=== PATIENT | male | born 1940 | race Caucasian/White ===

== ENCOUNTER 2020-06-13 08:53 | Day surgery (SDC) | payer MEDICARE, SELFPAY ==
[2020-06-07 10:20] VITALS: BMI 23.0
[2020-06-13 11:45] VITALS: BP 139/75; PULSE 108; RESP 20; TEMP 37.1; O2SAT 100
[2020-06-13 11:55] LABS: Glucose, Whole Blood 157 mg/dL (60-115)
[2020-06-13] MEDS: Tetracaine HCl/PF 0.5% Oph Sol 4 ML DROPS 1 DROP EYE-LEFT (11:55)
[2020-06-13] MEDS: Cyclopentolate 1 % Ophth Sol 2 ML DRPBTL 1 DROP EYE-LEFT ×3 (11:56→12:11)
[2020-06-13] MEDS: Tropicamide 1 % Ophth Sol 3 ML BTL 1 DROP EYE-LEFT ×3 (11:57→12:06)
--- NOTE | 2020-06-13 12:07 | P.CONAN_ITS ---
[facility] Past Medical History Medical History (Updated 06/07/20 @ 10:08 by Nohemi Arana) Anemia Diabetes Glaucoma Surgical History Surgical History (Updated 06/07/20 @ 10:08 by Nohemi Arana) Hx of colonoscopy Social History Social History Smoking Status: Never smoker Use of substances other than those prescribed or required for medical reasons: No Advance Directives: No Advance Directives Information Provided: Yes Meds Allergies Allergy/AdvReac Type Severity Reaction Status Date / Time [facility]lut[facility] [[facility] AdvReac Gastrointestinal Verified 06/07/20 10:12 Upset Home Medications Medication Instructions Recorded Confirmed Type albuterol sulfate [Ventolin HFA] 1 puff INHALATION QID PRN 06/07/20 06/07/20 History insulin detemir U-100 [Levemir 35 unit SUBCUT BID 06/07/20 06/07/20 History FlexTouch U-100 Insuln] lisinopril 2.5 mg PO DAILY 06/07/20 06/07/20 History metformin 1,000 mg PO BID 06/07/20 06/07/20 History sitagliptin [Januvia] 50 mg PO DAILY 06/07/20 06/07/20 History Exam Exam Date and Time: June 13, 2020 1207 Height,Weight and Vital Signs: Height 5 ft 4.17 in Weight 61.1 kg Last Vital Signs Temp 98.8 F 06/13/20 11:45 Pulse 108 H 06/13/20 11:45 Resp 20 06/13/20 11:45 BP 139/75 06/13/20 11:45 Pulse Ox 100 06/13/20 11:45 Pertinent Lab Results Pertinent Lab Results: Laboratory Tests 06/13/20 11:51 POC Glucose 157 H Airway Mallampati Class: III TM Dist: >3cm Neck ROM: Full Denture: Upper and Lower Heart: RRR Lungs: CTA BL Assessment and Plan Assessment Anesthesia Assessment: Anesthesia Plan Discussed and Chart Reviewed Final Anesthetic Review NPO: Yes ASA Class: III Final Preanesthetic Review: Meds/Allgs Chart Reviewed and Consent Obtained/Reviewed Patient Risk: Intermediate Procedure Risk: Low Anesthetic Plan Anesthetic Plan: MAC: Disposition: Standard PACU
--- NOTE | 2020-06-13 15:07 | P.PCN_ITS ---
Ophthalmology Procedure Procedure Ophthalmology Viscoelastic: Healmoshe Buttt Dual Pack Pro Ophthalmology Lenses: TECNIS [id number] (19) Procedure Notes: PREOPERATIVE DIAGNOSIS: Decreased visual acuity left eye secondary to cataract and glaucoma POSTOPERATIVE DIAGNOSIS: Same PROCEDURE: Left cataract extraction with intraocular lens insertion and trabeculectomy, left eye SURGEON: Meng Martínez M.D. ANESTHESIA: Topical/MAC ESTIMATED BLOOD LOSS: None COMPLICATIONS: None After obtaining informed consent, the patient was brought to the operating room suite and placed in the supine position. After adequate sedation per anesthesia, topical drops of Tetracaine were given to the left eye. The eye was then prepped and draped in the usual sterile fashion. The operating room microscope was then positioned over the left eye and a lid speculum placed. 2% Lidocaine was instilled subconjunctivally. After awaiting 30 seconds, a paracentesis was created superiorly. Hemostasis was then achieved using wet field cautery. Mitomycin .4mg/ml was then placed in the conjunctival pocket and held in place for two minutes. The subconjunctival pocket was then irrigated copiously with 20 mls of BSS. Paracentesis was then created. Viscoelastic was then instilled into the anterior chamber. A crescent blade was then utilized to create a partial thickness sclera wound followed by advancement to clear cornea with the crescent blade. A keratome was then utilized to enter the anterior chamber. Capsulotomy forceps were then utilized to create a continuous circular tear capsulotomy. Hydrodissection and hydrodelineation were carried out until adequate mobilization of the nucleus occurred. Phacoemulsification was utilized to remove the dense central nucleus followed by removal of remnant cortical material utilizing the automated aspiration irrigation unit. Viscoelastic was then instilled into the posterior capsular bag followed by placement of a posterior chamber intraocular lens. Attention was then directed to create a trabeculectomy. A Katty punch was then utilized to create the trabeculectomy. The residual Viscoelastic was then removed utilizing the automated IA machine. The egress of aqueous was evaluated and found to be appropriate. The conjunctiva was then closed with a 9-0 vicryl suture. BSS wa s then instilled into the anterior chamber creating a superior bleb, without obvious leakage. Intracameral injection of Vigamox 0.3%, 0.1 ml and subtenon injection of Kenalog-40 0.2 ml was given followed by an atropine drop. The patient tolerated the procedure well and will be followed up in the a.m.
[2020-06-13 15:10] VITALS: BP 123/73; PULSE 92; RESP 15; TEMP 36.3; O2SAT 100
--- NOTE | 2020-06-13 16:23 | W.PM.OPN ---
Operative Note Operative Note Narrative: The patient had an ophthalmology?procedure on 06/13/20.? The procedure template fed into the wrong report. Please see ECT progress note 06/13/20 note under neurology section entitled for full ophthalmology procedure note.? The information contained within that report is otherwise complete and accurate.? ?The patient did not have ECT on this date.?
== END 2020-06-13 16:03 | disposition home or self-care (01) ==
PROVIDERS: Visit Provider Ophthalmology
PROC: (CPT 66170; principal; 2020-06-13 13:30)
DX: H40.9 Unspecified glaucoma (principal); H40.812 Glaucoma with increased episcleral venous pressure, left eye; H25.12 Age-related nuclear cataract, left eye; E11.9 Type 2 diabetes mellitus without complications; Z79.899 Other long term (current) drug therapy; Z79.84 Long term (current) use of oral hypoglycemic drugs
CPT/HCPCS: 66170; 66984; 82947; J2250; J3010; J3300; J7315; Q4081; V2632

== ENCOUNTER 2021-01-06 15:26 | Emergency (ER) | payer MEDICARE, SELFPAY ==
--- NOTE | 2021-01-06 17:36 | ED.RECABL ---
HPI - Recheck/Abnormal Lab/Rx General Chief Complaint: Recheck/Abnormal Lab/Rx Stated Complaint: Abnormal labs Time Seen by Provider: 01/06/21 17:35 Source: patient Mode of arrival: ambulatory Limitations: no limitations History of Present Illness HPI narrative: Found to have a Hb of 7 today, denies chest pain but he is having fatigue, denies black stool, nose bleed etc. Denies shortness of breath. Related Data Home Medications Medication Instructions Recorded Confirmed albuterol sulfate [Ventolin HFA] 1 puff INHALATION QID PRN 06/07/20 06/07/20 insulin detemir U-100 [Levemir 35 unit SUBCUT BID 06/07/20 06/07/20 FlexTouch U-100 Insuln] lisinopril 2.5 mg PO DAILY 06/07/20 06/07/20 metformin 1,000 mg PO BID 06/07/20 06/07/20 sitagliptin [Januvia] 50 mg PO DAILY 06/07/20 06/07/20 Previous Rx's Medication Instructions Recorded ferrous sulfate 325 mg PO DAILY #30 tab 01/06/21 folic acid 1 mg PO DAILY #30 tab 01/06/21 Allergies Allergy/AdvReac Type Severity Reaction Status Date / Time dulaglutide [From [facility]] AdvReac Gastrointestinal Verified 06/07/20 10:12 Upset Review of Systems Constitutional: Constitutional: Reports no additional constitutional complaints Eyes: Eyes: Reports no additional eye complaints ENT: Denies dizziness Cardiovascular: Cardiovascular: Reports no additional cardiovascular complaints Respiratory: Respiratory: Reports as per HPI Gastrointestinal: Gastrointestinal: Reports no additional gastrointestinal complaints Musculoskeletal: Musculoskeletal: Reports no additional musculoskeletal complaints Integumentary/Breasts: Skin/Breast: Denies rash Neurologic: Reports system reviewed and no additional complaints, except as documented, Denies dizziness and Denies Sensory deficit (Neuro) Psychiatric: Psychiatric: Denies anxiety PMFSH Past Medical History Medical History Anemia Diabetes Glaucoma Surgical History Hx of colonoscopy Social History Social History Smoking Status: Never smoker Use of substances other than those prescribed or required for medical reasons: No Advance Directives: No Advance Directives Information Provided: Yes Physical Exam Vital Signs: Vital Signs: Last Vital Signs Temp 98.5 F 01/06/21 17:38 Pulse 90 01/06/21 17:38 Resp 16 01/06/21 17:38 BP 148/64 H 01/06/21 17:38 Pulse Ox 100 01/06/21 17:38 Body Mass Index 21.6 Const: General: healthy appearing Nutritional Appearance: average body habitus Orientation/consciousness: oriented to person and patient oriented x3 Limitations: no limitations HENMT: Head: Yes normal to inspection Ears: external ears normal General nose exam: Normal external nose present Mouth: Normal oral and palatal mucosa present and oropharynx normal Throat: Yes posterior oropharynx normal Eyes: General: appearance normal, both eyes and all related structures Neck: Other: supple Neck: Yes normal visual inspection Chest: Chest palpation & inspection: normal inspection of the chest Resp: Auscultation: clear to auscultation bilaterally Cardio: Jugular venous distension: no JVD Rate: regular rate Rhythm: regular rhythm Heart sounds: S1 normal heart sound present and S2 normal heart sound present GI: Inspection: Yes normal to inspection Palpation (GI): Soft to palpation, nontender and No hepatosplenomegaly present Auscultation: normal bowel sounds : Other: rectal brown stool heme negative General: Yes no CVA tenderness Back/Spine/Pelvis: Back: no CVA tenderness Skin: General skin exam: no rashes or lesions noted Neuro: General: oriented to person and patient oriented x3 Cranial nerves: Yes CN's II-XII intact bilaterally Motor exam (neuro): 5/5 motor strength present throughout Sensory Exam: No Sensory deficit (Neuro) Extrem: General: Yes normal to inspection Psych: Appearance: grossly normal Course Course Course Narrative: no evidence of active bleeding, rectal heme negative, Hct 28.5 will not transfuse at this time, EKG and troponin negative. Will not admit. Awaiting to speak to Dr. Rios Reevaluation(s) Reevaluation #1: Discussed with coverage with Dr. Lawson will place on iron and folic acid Time: 19:25 MDM - Recheck/Abnormal Lab/Rx Lab Data Result diagrams: 01/06/21 18:07 01/06/21 18:07 Labs: Lab Results 01/06/21 01/06/21 01/06/21 Range/Units 18:07 18:07 18:07 WBC 5.2 (4.8-10.8) X10*3/uL RBC 4.91 (4.60-5.80) X10*6/uL Hgb 7.4 L (14.0-18.0) g/dl Hct 28.5 L (42-52) % MCV 58.0 L (80-98) fL MCH 15.1 L (27.0-33.0) pg MCHC 26.0 L (31.0-36.0) g/dl RDW 20.7 H (11.0-16.0) % Plt Count 220 (160-400) X10*3/uL MPV Not Reportable Immature Gran % (Auto) 0.2 (0.0-0.4) % Neut % (Auto) 51.6 (45-73) % Lymph % (Auto) 35.3 (20-40) % Davis % (Auto) 11.5 H (2-11) % Eos % (Auto) 1.0 (0-4) % Baso % (Auto) 0.4 (0-2) % Lymph # (Auto) 1.8 (1.2-4.9) X10*3/uL Davis # (Auto) 0.6 (0.1-1.2) X10*3/uL Eos # (Auto) 0.1 (0.0-0.4) X10*3/uL Baso # (Auto) 0.0 (0.0-0.2) X10*3/uL Abs Immat Gran (auto) 0.01 (0.00-0.03) X10*3/uL Absolute Neuts (auto) 2.7 (2.0-8.3) X10*3/uL Absolute Nucleated RBC 0.000 (0.0-0.012) X10*3/uL Nucleated RBC % (auto) 0.0 (0.0-0.2) /100WBC Smear Tech's Comments VERIFIED Sodium 136 (135-145) mmol/L Potassium 4.5 (3.3-5.1) mmol/L Chloride 102 (96-108) mmol/L Carbon Dioxide 24 (22-29) mmol/L Anion Gap 15 (12-20) BUN 26 H (9-16) mg/dL Creatinine 1.03 (0.5-1.4) mg/dL Estim Creat Clear Calc 50.8 Estimated GFR > 60 Random Glucose 213 H (60-115) mg/dL Calcium 9.6 (8.4-10.2) mg/dL Troponin I High Sens 5.1 (<3.5-35.0) ng/L ECG Data Attestation: I personally reviewed and interpreted this ECG as follows: Interpretation: normal sinus rate of 90, no st or twave changes Discharge Plan Discharge Clinical Impression: Anemia Qualifiers: Anemia type: unspecified type Qualified Code(s): D64.9 - Anemia, unspecified Patient Disposition: Home, Self-Care Prescriptions: New folic acid 1 mg tablet 1 mg PO DAILY Qty: 30 RF: 0 ferrous sulfate 325 mg (65 mg iron) tablet 325 mg PO DAILY Qty: 30 RF: 0 No Action metformin 500 mg Tablet 1,000 mg PO BID RF: 0 albuterol sulfate [Ventolin HFA] 90 mcg/actuation Hfa Aerosol Inhaler 1 puff INHALATION QID PRN (Reason: Wheezing) RF: 0 lisinopril 2.5 mg Tablet 2.5 mg PO DAILY RF: 0 Levemir FlexTouch U-100 Insuln 100 unit/mL (3 mL) Insulin Pen 35 unit SUBCUT BID RF: 0 Januvia 50 mg Tablet 50 mg PO DAILY RF: 0 Referrals: Latrice Keith MD [Primary Care Provider] - 2 days
[2021-01-06 17:38] VITALS: BP 148/64; PULSE 90; RESP 16; TEMP 36.9; O2SAT 100; BMI 21.6
--- NOTE | 2021-01-06 17:46 | ECG_ITS ---
Test Reason : ABNORMAL LABS Blood Pressure : / mmHG Vent. Rate : 092 BPM Atrial Rate : 092 BPM P-R Int : 126 ms QRS Dur : 082 ms QT Int : 358 ms P-R-T Axes : 071 045 035 degrees QTc Int : 442 ms Normal sinus rhythm Nonspecific ST and T wave abnormality Abnormal ECG No previous ECGs available Referred By: Alberto Bautista Electronically Signed By:Gumaro Beal
[2021-01-06 18:13] LABS: Hemoglobin 7.4 g/dl (14.0-18.0); MANUAL DIFF FLAG SCAN; SCAN SMEAR FLAG 1
[2021-01-06 18:15] LABS: Basophils Percent Auto 0.4 % (0-2); Eosinophils Absolute Auto 0.1 X10*3/uL (0.0-0.4); Hematocrit 28.5 % (42-52); Imm Gran Abs Auto 0.01 X10*3/uL (0.00-0.03); Imm Gran Pct Auto 0.2 % (0.0-0.4); Lymphocytes Absolute Auto 1.8 X10*3/uL (1.2-4.9); Lymphocytes Percent Auto 35.3 % (20-40); Mean Corpuscular Hemoglobin 15.1 pg (27.0-33.0); Monocytes Absolute Auto 0.6 X10*3/uL (0.1-1.2); Monocytes Percent Auto 11.5 % (2-11); Neutrophils Absolute Auto 2.7 X10*3/uL (2.0-8.3); Neutrophils Percent Auto 51.6 % (45-73); Platelet Count 220 X10*3/uL (160-400); Red Blood Count 4.91 X10*6/uL (4.60-5.80); Red Cell Distribution Width 20.7 % (11.0-16.0); White Blood Count 5.2 X10*3/uL (4.8-10.8)
[2021-01-06 18:16] LABS: PLT ABN DIST 1
[2021-01-06 18:37] LABS: SLIDE REVIEW VERIFIED
[2021-01-06 18:43] LABS: Anion Gap 15 (12-20); Blood Urea Nitrogen 26 mg/dL (9-16); Calcium 9.6 mg/dL (8.4-10.2); Carbon Dioxide 24 mmol/L (22-29); Chloride 102 mmol/L (96-108); Creatinine Clr Calc Pharmacy 50.8; Estimated Glomerular Filt Rate > 60; Glucose Random 213 mg/dL (60-115); Potassium 4.5 mmol/L (3.3-5.1); Sodium 136 mmol/L (135-145)
[2021-01-06 18:50] LABS: Troponin-I High Sensitivity 5.1 ng/L (<3.5-35.0)
--- NOTE | 2021-01-06 19:32 | PC.NURSE ---
Type and Screen order to be discontinued/cancelled by . States he won't need a blood transfusion after all, so just cancel the order. We are going to be discharging him home .
== END 2021-01-06 19:44 | disposition home or self-care (01) ==
PROVIDERS: Emergency Provider Emergency Medicine; PCP Internal Medicine
DX: D64.9 Anemia, unspecified (principal); R79.89 Other specified abnormal findings of blood chemistry; E11.9 Type 2 diabetes mellitus without complications; Z79.899 Other long term (current) drug therapy; Z79.4 Long term (current) use of insulin
CPT/HCPCS: 36415; 80048; 84484; 85025; 93005; 99284

== ENCOUNTER 2021-08-22 10:02 | Outpatient (REF) | payer MEDICARE, SELFPAY ==
[2021-08-22 11:29] LABS: COVID-19 Test Negative (Negative)
== END 2021-08-22 10:03 | disposition home or self-care (01) ==
LOC: HO.LAB 10:02
PROVIDERS: Visit Provider Internal Medicine
DX: Z20.822 Contact with and (suspected) exposure to COVID-19 (principal)
CPT/HCPCS: 36415; 87635; C9803

== ENCOUNTER 2021-11-20 09:25 | Day surgery (SDC) | payer MEDICARE, OTHER, SELFPAY ==
[2021-11-15 09:16] VITALS: BMI 24.0
--- NOTE | 2021-11-17 08:54 | MHC.SHP ---
Pre-Procedural Eval Section A Date of Service: 11/17/21 The patient is an INPATIENT: No Changes since office visit: No Cold of Flu in the past 2 weeks, No New Medical Problems, No Changes in Medication and No Patient answered all questions The History & Physical has been completed within 30 days and I have reviewed it.: Yes Section B Chief Complaint: Blep Allergies: Allergies Allergy/AdvReac Type Severity Reaction Status Date / Time dulaglutide [From [facility]] AdvReac Gastrointestinal Verified 06/07/20 10:12 Upset Plan Diagnosis/Plan: Unchanged I have reviewed the history and physical and performed a pertinent physical examination on my patient. No changes have occurred unless specified.
[2021-11-20 10:45] LABS: Glucose, Whole Blood 194 mg/dL (60-115)
[2021-11-20 10:47] VITALS: BP 142/81; PULSE 105; RESP 16; TEMP 37.1; O2SAT 98
--- NOTE | 2021-11-20 10:52 | P.CONAN_ITS ---
[facility] Past Medical History Medical History Anemia Diabetes Glaucoma Surgical History Surgical History Hx of cataract extraction Hx of colonoscopy History of Problems with Anesthesia: No Social History Social History Patient Tobacco Use Status: Never used Tobacco Use of substances other than those prescribed or required for medical reasons: No Have you been hit, kicked, punched, or otherwise hurt by someone within the past year? If so, by whom?: No Are you DNR?: No Advance Directives: No Advance Directives Information Provided: Yes Advance Directives on File: No Recently lost weight without trying: No Eating poorly because of decreased appetite: No Nutrition Risks: Surgical patient >75years Meds Allergies Allergy/AdvReac Type Severity Reaction Status Date / Time [facility] AdvReac Gastrointestinal Verified 11/20/21 10:38 Upset Active Medications: Current Medications Povidone Iodine (Povidone Iodine 5 % Ophth Soln 30 Ml Bottle) 1 appl EYE-LEFT PREOP PRN PRN Reason: Pre-Op Surgical Implant Prophy Home Medications Medication Instructions Recorded Confirmed Last Taken Type albuterol sulfate 90 mcg/actuation 1 puff INHALATION QID PRN 06/07/20 11/15/21 Unknown History aerosol inhaler (Ventolin HFA) insulin detemir U-100 100 unit/mL 35 unit SUBCUT BID 06/07/20 06/07/20 Unknown History (3 mL) subcutaneous pen (Levemir FlexTouch U-100 Insulin) lisinopril 2.5 mg tablet 2.5 mg PO DAILY 06/07/20 11/15/21 11/20/21 08:00 Histo ry metformin 500 mg tablet 1,000 mg PO BID 06/07/20 11/15/21 Unknown History brimonidine 0.2 % eye drops 1 drp OPHTHALMIC (EYE) BID 11/15/21 11/15/21 11/20/21 08:00 History insulin detemir U-100 100 unit/mL 45 unit SUBCUT BID 11/15/21 11/15/21 Unknown History subcutaneous solution (Levemir U-100 Insulin) sitagliptin 100 mg tablet (Januvia) 1 tab PO DAILY 11/15/21 11/15/21 Unknown History timolol maleate 0.5 % eye drops 1 drp OPHTHALMIC (EYE) QAM 11/15/21 11/15/21 11/20/21 08:00 History Exam Exam Date and Time: November 20, 2021 1052 Height,Weight and Vital Signs: Height 5 ft 4 in Weight 63.503 kg Last Vital Signs Temp 98.8 F 11/20/21 10:47 Pulse 105 H 11/20/21 10:47 Resp 16 11/20/21 10:47 BP 142/81 H 11/20/21 10:47 Pulse Ox 98 11/20/21 10:47 Pertinent Lab Results Pertinent Lab Results: Laboratory Tests 11/20/21 10:41 POC Glucose 194 H Airway Mallampati Class: II TM Dist: >3cm Neck ROM: Full Denture: Upper Partial: Lower Loose/Missing/Broken Teeth: Yes, Upper and Lower Heart: RRR Lungs: CTA Assessment and Plan Assessment Anesthesia Assessment: Anesthesia Plan Discussed and Chart Reviewed Final Anesthetic Review History of Problems with Anesthesia: No NPO: Yes ASA Class: II Final Preanesthetic Review: Meds/Allgs Chart Reviewed, Consent Obtained/Reviewed and Anes Risks/Benef Reviewed Patient Risk: Low Procedure Risk: Low Anesthetic Plan Anesthetic Plan: MAC: Disposition: Standard PACU
[2021-11-20 13:01] VITALS: BP 116/70; PULSE 96; RESP 16; TEMP 36.9; O2SAT 97
--- NOTE | 2021-11-21 00:46 | OP_ITS ---
SURGEON: Meng Martínez MD PREOPERATIVE DIAGNOSIS: Persistent choroidal effusion. POSTOPERATIVE DIAGNOSIS: PROCEDURE PERFORMED: Revision OF bLEB. ESTIMATED BLOOD LOSS: COMPLICATIONS: ANESTHESIA: Local with MAC. ASSISTANTS: SPECIMENS: DESCRIPTION OF PROCEDURE: After obtaining informed consent, the patient was brought to the operating room suite, placed in supine position after being prepped and draped in usual sterile fashion. The Operative microscope was positioned over the left eye. Lidocaine was instilled subconjunctivally. The conjunctival peritomy was created superiorly utilizing sharp and blunt dissection with Cheri scissors revealing the sclerotomy site. Three sutures were utilized to tighten the sclerotomy site. 9-0 Vicryl was utilized. The conjunctiva was closed with 9-0 Vicryl suture. Paracentesis was then created followed by instillation of 0.1 Vigamox. The patient tolerated the procedure well and will see me in followup. MD CHIO Cates/MODL / [id number] MTDD
== END 2021-11-20 13:11 | disposition home or self-care (01) ==
PROVIDERS: PCP Internal Medicine; Visit Provider Ophthalmology
PROC: (CPT 66250; principal; 2021-11-20 12:40)
DX: H40.1133 Primary open-angle glaucoma, bilateral, severe stage (principal); H31.8 Other specified disorders of choroid; Z96.1 Presence of intraocular lens; D50.9 Iron deficiency anemia, unspecified; E11.21 Type 2 diabetes mellitus with diabetic nephropathy; Z79.4 Long term (current) use of insulin; Z88.0 Allergy status to penicillin
CPT/HCPCS: 66250; 82947; J2250; J3010

== ENCOUNTER 2022-03-18 08:04 | Emergency (ER) | payer MEDICARE, OTHER, SELFPAY ==
--- NOTE | ~2022-03-18 | US_ITS ---
EXAMINATION: US ABDOMEN LIMITED CLINICAL INFORMATION: Elevated LFTs. COMPARISON: None TECHNIQUE: Real-time imaging of the right upper quadrant abdominal viscera. FINDINGS: PANCREAS: Unremarkable. LIVER: The liver is normal in size. The liver contour is normal. Increased parenchymal echogenicity. No focal hepatic lesion. There is no intrahepatic biliary duct dilatation seen. GALLBLADDER: Unremarkable. The gallbladder is physiologically distended without evidence of stones, sludge, polyps, wall thickening or pericholecystic fluid. COMMON BILE DUCT: Normal in caliber measuring 0.6 cm in diameter. RIGHT KIDNEY: Ectopic right lower quadrant right kidney. Mild hydronephrosis and proximal hydroureter. No renal stone. The kidney measures 9.1 cm in maximum dimension. The bilateral ureteral jets are identified. FREE FLUID: None. US/US abdomen limited IMPRESSION: 1. Right pelvic kidney with mild hydroureteronephrosis. Bilateral ureteral jets identified. 2. Increased hepatic parenchymal echogenicity, which can be seen in the setting of steatosis. Underlying hepatocellular disease cannot be excluded. No hepatic parenchymal lesion or biliary ductal dilatation.
[2022-03-18 08:09] VITALS: BP 107/71; PULSE 122; RESP 16; O2SAT 95; BMI 21.7
--- NOTE | 2022-03-18 08:11 | ECG_ITS ---
Test Reason : DIZZINESS Blood Pressure : / mmHG Vent. Rate : 119 BPM Atrial Rate : 119 BPM P-R Int : 134 ms QRS Dur : 088 ms QT Int : 334 ms P-R-T Axes : 079 057 014 degrees QTc Int : 469 ms Sinus tachycardia Biatrial enlargement Nonspecific ST and T wave abnormality Abnormal ECG When compared with ECG of 06-JAN-2021 17:54, Nonspecific T wave abnormality, worse in Inferior leads Referred By: Generic ED Physician Electronically Signed By:Gumaro Beal
[2022-03-18 08:13] VITALS: TEMP 38.5
[2022-03-18] MEDS: Acetaminophen 325 MG TABLET 650 MG PO (08:18)
[2022-03-18 08:37] LABS: MANUAL DIFF FLAG NO
[2022-03-18 08:42] LABS: Basophils Percent Auto 0.2 % (0-2); Hematocrit 43.2 % (42.0-52.0); Hemoglobin 14.8 g/dl (14.0-18.0); Imm Gran Abs Auto 0.03 X10*3/uL (0.00-0.03); Imm Gran Pct Auto 0.4 % (0.0-0.4); Lymphocytes Absolute Auto 0.5 X10*3/uL (1.2-4.9); Lymphocytes Percent Auto 6.4 % (20-40); Mean Corpuscular HGB Conc 34.3 g/dl (31.0-36.0); Mean Corpuscular Hemoglobin 30.1 pg (27.0-33.0); Mean Platelet Volume 11.3 fL (9.4-12.4); Monocytes Absolute Auto 0.8 X10*3/uL (0.1-1.2); Monocytes Percent Auto 9.1 % (2-11); Neutrophils Absolute Auto 6.9 x10*3/uL (2.0-8.3); Neutrophils Percent Auto 83.9 % (45-73); Red Blood Count 4.91 X10*6/uL (4.60-5.80); Red Cell Distribution Width 11.8 % (11.0-16.0); White Blood Count 8.2 X10*3/uL (4.8-10.8)
[2022-03-18 08:43] LABS: Platelet Count 83 X10*3/uL (160-400)
[2022-03-18 08:54] LABS: COVID-19 Test Negative (Negative)
--- NOTE | 2022-03-18 08:54 | ED_ITS ---
HPI - General Adult General Chief complaint: Nausea/Vomiting/Diarrhea Stated complaint: headache x3 days, dizzy Time Seen by Provider: 03/18/22 08:49 Source: patient Mode of arrival: ambulatory Limitations: no limitations History of Present Illness HPI narrative: This is 81 years old diabetic presented to the ED complaining of nausea vomiting dizziness for about 3 days. Denies any neck pain he does have some headache and some abdominal pain. Onset (ago): day(s) (3) Radiation: non-radiation Severity: moderate Quality: burning Pain Consistency: constant Relieving factors: none Exacerbating factors: none Associated symptoms: denies other symptoms Related Data Home Medications Medication Instructions Recorded Confirmed albuterol sulfate 90 mcg/actuation 1 puff inhalation QID PRN Wheezing 06/07/20 11/15/21 aerosol inhaler (Ventolin HFA) insulin detemir U-100 100 unit/mL 35 unit subcut BID 06/07/20 06/07/20 (3 mL) subcutaneous pen (Levemir FlexTouch U-100 Insulin) lisinopril 2.5 mg tablet 2.5 mg PO DAILY 06/07/20 11/15/21 metformin 500 mg tablet 1,000 mg PO BID 06/07/20 11/15/21 brimonidine 0.2 % eye drops 1 drp ophthalmic (eye) BID 11/15/21 11/15/21 insulin detemir U-100 100 unit/mL 45 unit subcut BID 11/15/21 11/15/21 subcutaneous solution (Levemir U-100 Insulin) sitagliptin 100 mg tablet (Januvia) 1 tab PO DAILY 11/15/21 11/15/21 timolol maleate 0.5 % eye drops 1 drp ophthalmic (eye) QAM 11/15/21 11/15/21 Previous Rx's Medication Instructions Recorded ferrous sulfate 325 mg (65 mg 325 mg PO DAILY #30 tabs 01/06/21 iron) tablet folic acid 1 mg tablet 1 mg PO DAILY #30 tabs 01/06/21 cephalexin 500 mg capsule 500 mg PO Q8H #21 caps 03/18/22 ondansetron 4 mg disintegrating 4 mg PO Q8H 4 days #12 tabs 03/18/22 tablet Allergies Allergy/AdvReac Type Severity Reaction Status Date / Time dulaglutide [From [facility]] AdvReac Gastrointestinal Verified 11/20/21 10:38 Upset Review of Systems Constitutional: Constitutional: Reports no additional constitutional complaints Gastrointestinal: Gastrointestinal: Reports abdominal pain and Reports vomiting Neurologic: Reports system reviewed and no additional complaints, except as documented [facility] Past Medical History Attestation statement: The following information was validated with the patient. Medical History Anemia Diabetes Glaucoma Surgical History Hx of cataract extraction Hx of colonoscopy Social History Social History Alcohol intake: current Alcohol intake frequency: holidays/special occasions only Patient Tobacco Use Status: Never used Tobacco Use of substances other than those prescribed or required for medical reasons: No Advance Directives: No Advance Directives Information Provided: Yes Physical Exam ED Vital Signs: Vital Signs - 24 hr 03/18/22 08:09 03/18/22 08:13 03/18/22 10:41 Temperature 101.3 F H 98.4 F Pulse Rate 122 H 81 Respiratory Rate 16 18 Blood Pressure 107/71 114/61 Pulse Oximetry 95 97 Oxygen Delivery Method Room Air 03/18/22 12:08 Temperature Pulse Rate 81 Respiratory Rate 18 Blood Pressure 114/58 L Pulse Oximetry 97 Oxygen Delivery Method Room Air BMI result Body Mass Index 21.7 Const Other: He looks well he is not toxic-appearing, he is not in distress General: cooperative Nutritional Appearance: average body habitus Orientation/consciousness: patient oriented x3 HENMT Head: Yes normal to inspection Face and sinus: Yes normal facial exam Mouth: Normal oral and palatal mucosa present Throat: Yes posterior oropharynx normal Neck Neck: Yes normal visual inspection and Yes full ROM Thyroid: Thyroid normal Chest Chest palpation & inspection: normal inspection of the chest Resp Effort & Inspection: normal respiratory effort Auscultation: clear to auscultation bilaterally Cardio Jugular venous distension: no JVD Rate: regular rate Rhythm: regular rhythm GI Inspection: Yes normal to inspection Palpation (GI): Soft to palpation, not firm, nontender and no guarding Skin General skin exam: no rashes or lesions noted Lesions: no lesions Rashes: no rashes Neuro General: patient oriented x3 Cranial nerves: Yes CN's II-XII intact bilaterally and Yes Facial sensation intact/muscles of mastication intact Course Reevaluation(s) Reevaluation #1: At this time the patient is completely asymptomatic he has no pain, he has no fever. White count is normal, chest x-ray is negative , LFT were noted by me ultrasound of the gallbladder shows no stones. He wants to go home. The pat ient is more consistent with a viral illness, I explained the patient and the about the elevated LFT, patient and were very comfortable with the plan Medical Decision Making Lab Data Result diagrams: 03/18/22 08:31 03/18/22 08:31 Labs: Lab Results 03/18/22 03/18/22 03/18/22 Range/Units 08:31 08:31 08:31 WBC 8.2 (4.8-10.8) X10*3/uL RBC 4.91 (4.60-5.80) X10*6/uL Hgb 14.8 (14.0-18.0) g/dl Hct 43.2 (42.0-52.0) % MCV 88.0 (80.0-98.0) fL MCH 30.1 (27.0-33.0) pg MCHC 34.3 (31.0-36.0) g/dl RDW 11.8 (11.0-16.0) % Plt Count 83 L (160-400) X10*3/uL MPV 11.3 (9.4-12.4) fL Immature Gran % (Auto) 0.4 (0.0-0.4) % Neut % (Auto) 83.9 H (45-73) % Lymph % (Auto) 6.4 L (20-40) % [place] % (Auto) 9.1 (2-11) % Eos % (Auto) 0.0 (0-4) % Baso % (Auto) 0.2 (0-2) % Lymph # (Auto) 0.5 L (1.2-4.9) X10*3/uL [place] # (Auto) 0.8 (0.1-1.2) X10*3/uL Eos # (Auto) 0.0 (0.0-0.4) X10*3/uL Baso # (Auto) 0.0 (0.0-0.2) X10*3/uL Abs Immat Gran (auto) 0.03 (0.00-0.03) X10*3/uL Absolute Neuts (auto) 6.9 (2.0-8.3) x10*3/uL Absolute Nucleated RBC 0.000 (0.0-0.012) X10*3/uL Nucleated RBC % (auto) 0.0 (0.0-0.2) /100WBC Sodium 132 L (135-145) mmol/L Potassium 4.0 (3.3-5.1) mmol/L Chloride 99 (96-108) mmol/L Carbon Dioxide 20 L (22-29) mmol/L Anion Gap 17 (12-20) BUN 22 H (9-16) mg/dL Creatinine 1.14 (0.5-1.4) mg/dL Estim Creat Clear Calc 45.5 Estimated GFR > 60 Random Glucose 255 H (60-115) mg/dL Calcium 8.6 D (8.4-10.2) mg/dL Total Bilirubin 2.2 H (0.0-1.0) mg/dL Direct Bilirubin 1.2 H (0.0-0.5) mg/dL AST 107 H (5-37) U/L ALT 127 H (0-40) U/L Alkaline Phosphatase 76 (39-117) U/L Total Protein 7.1 (6.5-8.0) g/dL Albumin 4.1 (3.5-5.0) g/dL Urine Color Urine Appearance Urine pH (5.0-8.0) Ur Specific [place] (1.005-1.025) Urine Protein (NEG-TRACE) MG/DL Urine Glucose (UA) (NEG) MG/DL Urine Ketones (NEG) MG/DL Urine Blood (NEG) Urine Nitrite (NEG) Ur Leukocyte Esterase (NEG) Urine RBC (0) /HPF Urine WBC (0-4) /HPF Ur Squamous Epith Cells /LPF Urine Bacteria /LPF Granular Casts /LPF COVID-19 ([facility]) Negative (Negative) COVID-19 Clin Com See Note 03/18/22 Range/Units 12:53 WBC (4.8-10.8) X10*3/uL RBC (4.60-5.80) X10*6/uL Hgb (14.0-18.0) g/dl Hct (42.0-52.0) % MCV (80.0-98.0) fL MCH (27.0-33.0) pg MCHC (31.0-36.0) g/dl RDW (11.0-16.0) % Plt Count (160-400) X10*3/uL MPV (9.4-12.4) fL Immature Gran % (Auto) (0.0-0.4) % Neut % (Auto) (45-73) % Lymph % (Auto) (20-40) % [place] % (Auto) (2-11) % Eos % (Auto) (0-4) % Baso % (Auto) (0-2) % Lymph # (Auto) (1.2-4.9) X10*3/uL [place] # (Auto) (0.1-1.2) X10*3/uL Eos # (Auto) (0.0-0.4) X10*3/uL Baso # (Auto) (0.0-0.2) X10*3/uL Abs Immat Gran (auto) (0.00-0.03) X10*3/uL Absolute Neuts (auto) (2.0-8.3) x10*3/uL Absolute Nucleated RBC (0.0-0.012) X10*3/uL Nucleated RBC % (auto) (0.0-0.2) /100WBC Sodium (135-145) mmol/L Potassium (3.3-5.1) mmol/L Chloride (96-108) mmol/L Carbon Dioxide (22-29) mmol/L Anion Gap (12-20) BUN (9-16) mg/dL Creatinine (0.5-1.4) mg/dL Estim Creat Clear Calc Estimated GFR Random Glucose (60-115) mg/dL Calcium (8.4-10.2) mg/dL Total Bilirubin (0.0-1.0) mg/dL Direct Bilirubin (0.0-0.5) mg/dL AST (5-37) U/L ALT (0-40) U/L Alkaline Phosphatase (39-117) U/L Total Protein (6.5-8.0) g/dL Albumin (3.5-5.0) g/dL Urine Color YELLOW Urine Appearance HAZY Urine pH 5.5 (5.0-8.0) Ur Specific [place] 1.010 (1.005-1.025) Urine Protein TRACE (NEG-TRACE) MG/DL Urine Glucose (UA) 500 H (NEG) MG/DL Urine Ketones 15 (NEG) MG/DL Urine Blood 2+ H (NEG) Urine Nitrite NEG (NEG) Ur Leukocyte Esterase 2+ H (NEG) Urine RBC 5-9 H (0) /HPF Urine WBC 76-150 H (0-4) /HPF Ur Squamous Epith Cells NONE /LPF Urine Bacteria 4+ /LPF Granular Casts 0-2 /LPF COVID-19 ([facility]) (Negative) COVID-19 Clin Com Discharge Plan Discharge Clinical Impression: Acute viral syndrome, Abnormal LFTs, Acute UTI Patient Disposition: Home, Self-Care Instructions: Urinary Tract Infection in Older Adults (ED) Additional Instructions: Please follow-up with your primary care physician tomorrow, you liver tests were mildly elevated they will need to be monitored. Also we called an antibiotic for the urinary tract infection Prescriptions: New cephalexin 500 mg capsule 500 mg PO Q8H Qty: 21 0RF ondansetron 4 mg tablet,disintegrating 4 mg PO Q8H 4 Days Qty: 12 0RF No Action metformin 500 mg Tablet 1,000 mg PO BID albuterol sulfate [Ventolin HFA] 90 mcg/actuation Hfa Aerosol Inhaler 1 puff INHALATION QID PRN (Reason: Wheezing) lisinopril 2.5 mg Tablet 2.5 mg PO DAILY Levemir FlexTouch U-100 Insuln 100 unit/mL (3 mL) Insulin Pen 35 unit SUBCUT BID folic acid 1 mg tablet 1 mg PO DAILY Qty: 30 0RF ferrous sulfate 325 mg (65 mg iron) tablet 325 mg PO DAILY Qty: 30 0RF brimonidine 0.2 % drops 1 drp ophthalmic (eye) BID timolol maleate 0.5 % drops 1 drp ophthalmic (eye) QAM Levemir U-100 Insulin 100 unit/mL solution 45 unit subcut BID Januvia 100 mg tablet 1 tab PO DAILY Referrals: Latrice Keith MD [Primary Care Provider] - 1 day Interventions: ED Discharge Assessment Last Done: 03/18/22 13:37 Discharge Date/Time: 03/18/22 13:37
[2022-03-18 08:55] LABS: Anion Gap 17 (12-20); Blood Urea Nitrogen 22 mg/dL (9-16); Calcium 8.6 mg/dL (8.4-10.2); Carbon Dioxide 20 mmol/L (22-29); Chloride 99 mmol/L (96-108); Creatinine Clr Calc Pharmacy 45.5; Estimated Glomerular Filt Rate > 60; Glucose Random 255 mg/dL (60-115); Sodium 132 mmol/L (135-145)
[2022-03-18 09:37] LABS: Alanine Aminotransferase 127 U/L (0-40); Albumin Level 4.1 g/dL (3.5-5.0); Alkaline Phosphatase 76 U/L (39-117); Aspartate Amino Transferase 107 U/L (5-37); Bilirubin Direct 1.2 mg/dL (0.0-0.5); Bilirubin Total 2.2 mg/dL (0.0-1.0); Total Protein 7.1 g/dL (6.5-8.0)
[2022-03-18] MEDS: ondansetron HCL 4 MG/2 ML VIAL IVPUSH (10:29)
[2022-03-18] MEDS: 0.9 % Sodium Chloride 1,000 ML 999 ML IVCONT (10:31)
[2022-03-18 10:41] VITALS: BP 114/61; PULSE 81; RESP 18; TEMP 36.9; O2SAT 97
[2022-03-18 12:08] VITALS: BP 114/58; PULSE 81; RESP 18; O2SAT 97
[2022-03-18 13:00] LABS: Appearance Urine HAZY; Color Urine YELLOW; Glucose Urine UA 500 MG/DL (NEG); Leukocyte Esterase Urine 2+ (NEG); Nitrite Urine NEG (NEG); PH 5.5 (5.0-8.0); UACC Culture Trigger YES; Urine Blood 2+ (NEG); Urine Ketones 15 MG/DL (NEG); Urine Protein TRACE MG/DL (NEG-TRACE)
[2022-03-18 13:20] LABS: Bacteria Urine 4+ /LPF; UACC CULT YES
[2022-03-18 13:21] LABS: Granular Casts Urine 0-2 /LPF
[2022-03-18] MEDS: cephALEXin 500 MG CAPSULE PO (13:31)
== END 2022-03-18 13:37 | disposition home or self-care (01) ==
PROVIDERS: Emergency Provider Emergency Medicine; PCP Internal Medicine
DX: B34.9 Viral infection, unspecified (principal); N39.0 Urinary tract infection, site not specified; R42 Dizziness and giddiness; R79.89 Other specified abnormal findings of blood chemistry; R51.9 Headache, unspecified; Z20.822 Contact with and (suspected) exposure to COVID-19; Z79.899 Other long term (current) drug therapy
CPT/HCPCS: 76705; 80048; 80076; 81001; 85025; 87086; 87088; 87186; 87635; 93005; 96374; 99285; J2405